=== PATIENT | female | born 1985 | race Caucasian/White ===

== ENCOUNTER 2021-02-05 10:31 | Emergency (ER) | payer OTHER, MEDICAID ==
[~2021-02-05] VITALS: Ht 162.6 cm; Wt 77.1 kg
[2021-02-05] MEDS ORDERED: SYNTHROID75 MC1 PO (11:13)
[2021-02-05] MEDS ORDERED: PROAIR HFA8.5 GM INH (11:13)
[2021-02-05] MEDS ORDERED: CELEXA20 MG PO (11:14)
[2021-02-05] MEDS ORDERED: ALPRAZOLAM XR3 MG PO (11:15)
[2021-02-05 12:20] LABS: INFLUENZA A ANTIGEN Negative (Negative); INFLUENZA B ANTIGEN Negative (Negative)
[2021-02-05] MEDS ORDERED: LEVOFLOXACIN500 MG PO (12:32)
[2021-02-05] MEDS ORDERED: ONDANSETRON ODT4 MG PO (12:32)
[2021-02-05] MEDS ORDERED: APAP W/CODEINE1 TA2 PO (12:32)
[2021-02-05 12:46] VITALS: BP 126/86
== END 2021-02-05 12:42 | disposition left against medical advice (07) ==
LOC: M.ERS 10:31
PROVIDERS: Physician Assistant
DX: J06.9 Acute upper respiratory infection, unspecified (principal); R11.2 Nausea with vomiting, unspecified; Z20.822 Contact with and (suspected) exposure to COVID-19; I10 Essential (primary) hypertension; Z88.8 Allergy status to other drugs, medicaments and biological substances; Z90.711 Acquired absence of uterus with remaining cervical stump; Z90.49 Acquired absence of other specified parts of digestive tract; Z98.51 Tubal ligation status